=== PATIENT | female | born 1955 | race Two or more races ===

== ENCOUNTER 2017-03-06 11:45 | Observation (INO) | payer OTHER ==
[2017-03-06] MEDS ORDERED: ONDANSETRON 4 MG/2 ML VIAL IVP ONE (15:00)
[2017-03-06] MEDS ORDERED: NS 1,000 ML IV ONE (15:02)
[2017-03-06] MEDS ORDERED: MECLIZINE HCL 25 MG TAB PO ONE ×2 (15:03→20:01)
[2017-03-06 15:06] LABS: % IMMATURE GRANULYOCYTES 0.2 % (0.0-1.1); ABSOLUTE IMMATURE GRANULOCYTES 0.02 10^3/uL (0.00-0.10); ADD DIFF? NO; ADD MORPH? NO; ADD SCAN? NO; ATYPICAL LYMPHOCYTE FLAG 10 (0-99); FRAGMENT RBC FLAG 0 (0-99); HEMATOCRIT 42.4 % (38.0-47.0); HEMOGLOBIN 14.1 g/dL (12.6-16.3); LEFT SHIFT FLG 0 (0-99); LIPEMIA HEMOLYSIS FLAG 80 (0-99); MEAN CELL HEMOGLOBIN 29.7 pg (27.9-34.1); MEAN CELL HEMOGLOBIN CONCENTR. 33.3 g/dL (32.4-36.7); MEAN CELL VOLUME 89.3 fL (81.5-99.8); MEAN PLATELET VOLUME 9.7 fL (8.7-11.7); PLATELET CLUMPS FLAG 0 (0-99); PLATELET COUNT 319 10^3/uL (150-400); RED BLOOD CELL COUNT 4.75 10^6/uL (4.18-5.33); RED CELL DISTRIBUTION WIDTH 12.9 % (11.5-15.2)
--- NOTE | 2017-03-06 15:06 | EDPHY ---
H & P Time Seen by Provider: 03/06/17 13:53 HPI/ROS: CHIEF COMPLAINT: Dizzy HISTORY OF PRESENT ILLNESS: The patient is a 61-year-old female who presents to the emergency department with dizziness starting at 5:45 a.m. last evening. Patient states she initially developed nausea and vomiting. After vomiting she felt dizzy. It came on suddenly. It is worse with head movement. She feels as though the room is spinning. She denies tenderness or hearing loss. No focal weakness. She has had mild right arm numbness. No incoordination no visual change. No neck pain. No fall. The patient has no chest pain or shortness of breath. She took meclizine without much relief. She took Zofran with improvement in her nausea. REVIEW OF SYSTEMS: My complete review of systems is negative except as mentioned in the HPI. Past Medical/Surgical History: Includes thyroid disease, melanoma, vertigo, meningioma Past surgical history: Appendectomy, , prolapsed bladder Social history: Patient does not smoke. She denies alcohol use. No drug use. Smoking Status: Never smoked Physical Exam: Vitals noted GENERAL: Mild acute distress, alert. HEENT: Eyes normal to inspection, normal pharynx, no signs of dehydration. Horizontal nystagmus. NECK: No thyromegaly, no lymphadenopathy, supple. RESPIRATORY: Clear to auscultation bilaterally, no rales, rhonchi or wheezing. CVS: Regular rate and rhythm, no rubs, murmurs, or gallops. ABDOMEN: Soft, nontender, nondistended, no organomegaly. BACK: Normal to inspection, no CVA tenderness. SKIN: Normal color, no rash, warm, dry. No pallor. EXTREMITIES: No pedal edema, no calf tenderness, no Homans sign or cords, no joint swelling. NEURO/PSYCH: Higher functions: Alert and Oriented x3. Normal speech and cognition. Normal mood and affect. Cranial nerves: Normal as tested. Cerebellar: Normal as tested. Good finger to nose, good [id number], normal gait. Peripheral exam: Normal motor exam. Normal sensation. Normal reflexes. Constitutional: Initial Vital Signs Temperature (C) 36.4 C 03/06/17 11:51 Heart Rate 72 03/06/17 11:51 Respiratory Rate 18 03/06/17 11:51 Blood Pressure 143/63 H 03/06/17 11:51 O2 Sat (%) 97 03/06/17 11:51 O2 Delivery Mode Room Air Allergies/Adverse Reactions: oseltamivir phosphate [From Tamiflu] Allergy (Intermediate, Verified 03/06/17 11 :50) nitrofurantoin Allergy (Verified 03/06/17 11:50) STERIODS Allergy (Unknown, Uncoded 11/16/15 19:53) Home Medications: Medication Instructions Recorded Liothyronine Sodium [Cytomel 25 11/16/15 mcg (RX)] Meclizine HCl [Meclizine HCl 25 mg 25 mg PO Q6 PRN #20 tab 02/01/16 (RX,OTC)] Ondansetron Odt [Zofran Odt] 4 mg PO Q4PRN #6 tab 02/01/16 Medical Decision Making - Diagnostics Imaging Results: Imaging Impressions Brain MRI 03/06/17 15:18 Impression: 1. 1.7 x 1.5 x 1.5 cm homogeneously enhancing mass within the caudal aspect of the interhemispheric fissure anteriorly, with imaging features compatible with the given history of meningioma. Comparison with previous studies is recommended to determine whether the lesion has increased in size. 2. No features of acute cortical ischemia or intracranial hemorrhage. Results called to Dr. Kajal Newman at 4:25 PM. ED Course/Re-evaluation: In the emergency department I discussed possible etiologies with the patient. I answered all her questions. Patient had laboratory studies ordered. She is given normal saline 1 L IV for hydration. She is given meclizine 25 mg orally, Benadryl 25 mg IV and Zofran 4 mg IV for nausea and dizziness. Because of her dizziness an MRI was ordered. On recheck the patient was doing well. Her chemistry panel was unremarkable. CBC was normal. EKG shows sinus rhythm, at 57, normal axis, normal intervals. There are no ST or T-wave abnormalities. On recheck the patient stated she was feeling a bit better. Her vertigo was still present but improved. She had no focal neurologic deficits on exam. She still had mild horizontal nystagmus. She is given Ativan 1 mg IV. MRI: Please refer the dictated report by Dr. Mejia. No acute CVA or bleed. Discussed the results with the patient. I answered all her questions. On recheck she had no focal deficits. She stated her vertigo was while lying in bed. I attempted to ambulate the patient to the bathroom. She was unable to ambulate or be steady on her feet. Because of fall risk she will be admitted to the hospitalist. I discussed this with Dr. Rodriguez. Differential Diagnosis: My differential includes but is not limited to ischemic CVA, hemorrhagic CVA, subarachnoid hemorrhage, subdural hematoma, epidural hematoma, electrolyte abnormality, sugar abnormality, dehydration, peripheral vertigo, Meniere's disease - Data Points Laboratory Results: Laboratory Results 03/06/17 14:02 03/06/17 14:02 03/06/17 03/06/17 03/06/17 14:02 14:02 14:02 WBC 8.72 10^3/uL 10^3/uL (3.80-9.50) RBC 4.75 10^6/uL 10^6/uL (4.18-5.33) Hgb 14.1 g/dL g/dL (12.6-16.3) Hct 42.4 % % (38.0-47.0) MCV 89.3 fL fL (81.5-99.8) MCH 29.7 pg pg (27.9-34.1) MCHC 33.3 g/dL g/dL (32.4-36.7) RDW 12.9 % % (11.5-15.2) Plt Count 319 10^3/uL 10^3/uL (150-400) MPV 9.7 fL fL (8.7-11.7) Neut % (Auto) 66.4 % % (39.3-74.2) Lymph % (Auto) 26.8 % % (15.0-45.0) Hunt % (Auto) 5.4 % % (4.5-13.0) Eos % (Auto) 0.7 % % (0.6-7.6) Baso % (Auto) 0.5 % % (0.3-1.7) Nucleat RBC Rel Count 0.0 % % (0.0-0.2) Absolute Neuts (auto) 5.79 10^3/uL 10^3/uL (1.70-6.50) Absolute Lymphs (auto) 2.34 10^3/uL 10^3/uL (1.00-3.00) Absolute Monos (auto) 0.47 10^3/uL 10^3/uL (0.30-0.80) Absolute Eos (auto) 0.06 10^3/uL 10^3/uL (0.03-0.40) Absolute Basos (auto) 0.04 10^3/uL 10^3/uL (0.02-0.10) Absolute Nucleated RBC 0.00 10^3/uL 10^3/uL (0-0.01) Immature Gran % 0.2 % % (0.0-1.1) Immature Gran # 0.02 10^3/uL 10^3/uL (0.00-0.10) PT 12.9 SEC SEC (12.0-15.0) INR 0.98 (0.83-1.16) APTT 25.3 SEC SEC (23.0-38.0) Sodium 142 mEq/L mEq/L (134-144) Potassium 3.9 mEq/L mEq/L (3.5-5.2) Chloride 105 mEq/L mEq/L (97-110) Carbon Dioxide 22 mEq/l mEq/l (22-31) Anion Gap 15 mEq/L mEq/L (8-16) BUN 18 mg/dL mg/dL (7-23) Creatinine 0.8 mg/dL mg/dL (0.6-1.0) Estimated GFR > 60 Glucose 96 mg/dL mg/dL (70-100) Calcium 10.0 mg/dL mg/dL (8.5-10.4) Troponin I < 0.012 ng/mL ng/mL (0.000-0.034) Medications Given: Discontinued Medications Diphenhydramine HCl (Benadryl Injection) 25 mg IVP EDNOW ONE Stop: 03/06/17 15:03 Last Admin: 03/06/17 15:10 Dose: 25 mg Sodium Chloride (Ns) 1,000 mls @ 0 mls/hr IV ONCE ONE PRN Reason: Wide Open Stop: 03/06/17 15:03 Last Admin: 03/06/17 15:57 Dose: 1,000 mls Lorazepam (Ativan Injection) 1 mg IVP EDNOW ONE Stop: 03/06/17 16:13 Last Admin: 03/06/17 16:47 Dose: 1 mg Meclizine HCl (Meclizine Hcl) 25 mg PO EDNOW ONE Stop: 03/06/17 15:04 Last Admin: 03/06/17 15:10 Dose: 25 mg Ondansetron HCl (Zofran) 4 mg IVP EDNOW ONE Stop: 03/06/17 15:01 Last Admin: 03/06/17 15:10 Dose: 4 mg Departure - Departure Disposition: [facility] Inpatient Acute Clinical Impression: Dizziness Condition: Good Referrals: ROSA MACRELINO [Primary Care Provider] - As per Instructions
[2017-03-06] MEDS ORDERED: GADOBUTROL 10 ML VIAL IVP ONE (15:15)
[2017-03-06 15:29] LABS: APTT 25.3 SEC (23.0-38.0); INR 0.98 (0.83-1.16); PROTIME(PATIENT) 12.9 SEC (12.0-15.0)
[2017-03-06 15:36] LABS: ANION GAP 15 mEq/L (8-16); CARBON DIOXIDE 22 mEq/l (22-31); CHLORIDE 105 mEq/L (97-110); CREATININE 0.8 mg/dL (0.6-1.0); GLOMERULAR FILTRATION RATE > 60; GLUCOSE 96 mg/dL (70-100); POTASSIUM 3.9 mEq/L (3.5-5.2); SODIUM 142 mEq/L (134-144)
[2017-03-06 15:46] LABS: TROPONIN I < 0.012 ng/mL (0.000-0.034)
--- NOTE | 2017-03-06 15:59 | CPEKG ---
Heart Rate: 57 RR Interval: 1053 P-R Interval: 168 QRSD Interval: 88 QT Interval: 452 QTC Interval: 440 P [place]: 53 QRS [place]: 35 T Wave [place]: 45 EKG Severity - NORMAL ECG - EKG Impression: SINUS RHYTHM Electronically Signed By: Kajal Newman 06-Mar-2017 20:26:28
[2017-03-06] MEDS ORDERED: LORazepam 2 MG/ML INJ IVP ONE (16:12)
[2017-03-06] MEDS ORDERED: METOCLOPRAMIDE 10 MG/2 ML VIAL IVP PRN (17:55)
[2017-03-06] MEDS ORDERED: oxyCODONE IR 5 MG TAB PO PRN (17:55)
[2017-03-06] MEDS ORDERED: ONDANSETRON 4 MG/2 ML VIAL IVP PRN (17:55)
[2017-03-06] MEDS ORDERED: ONDANSETRON DISINTEGRATING 4 MG TAB PO PRN (17:55)
[2017-03-06] MEDS ORDERED: LORazepam 2 MG/ML INJ IVP PRN (17:55)
[2017-03-06] MEDS ORDERED: ACETAMINOPHEN 325 MG TAB PO PRN (17:55)
[2017-03-06] MEDS ORDERED: PROMETHAZINE HCL 25 MG/ML INJ IVP PRN (17:55)
[2017-03-06] MEDS ORDERED: NS 1,000 ML IV SCH (18:00)
--- NOTE | 2017-03-06 18:41 | GHP ---
[f rep st] HISTORY AND PHYSICAL DATE OF ADMISSION: 03/06/2017 CHIEF COMPLAINT: Dizziness. HISTORY OF PRESENT ILLNESS: This is a 61-year-old female with a history of vertigo, as well as menin gioma, who presents with dizziness. She had an episode of vomiting and diarrhea yesterday afternoon at 5:45. She thinks that she ate something bad, as nobody else has been sick around her. She felt v rashawn poorly and took a Zofran. She was at work when this happened, and she had to leave work. After she got home, she was extremely dizzy. She describes it as the room spinning when she changes her vi [place] from one side to the other. She has had vertigo before and this feels like vertigo. She has no focal numbness or weakness in her arms or legs, no confusion. Her other GI symptoms have improved s ignificantly, and she is now slightly hungry. She has not had any nausea or vomiting or diarrhea sin ce yesterday. PAST MEDICAL/SURGICAL HISTORY: 1. 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 Garcia at the [place]. 2. Hypothyroid. 3. Vertigo. 4. Melanoma, followed by Dermatology. Melanoma was resected. 5. Appendectomy. 6. . 7. Prolapsed bladder. MEDICATIONS: Please see medication reconciliation. ALLERGIES: Include Tamiflu, Macrobid, steroids. FAMILY HISTORY: No meningioma. SOCIAL HISTORY: She does not drink or smoke. She is accompanied by her friend, whom she says is kymberly ost a sister. REVIEW OF SYSTEMS: A 10-point review of systems is conducted and is negative except per HPI. PHYSICAL EXAMINATION: VITAL SIGNS: Blood pressure 140/70, heart rate 52, respiration rate 18, satti ng 96% on room air. Temperature is 36.4. GENERAL: The patient is a pleasant female who appears surjit ewhat uncomfortable, lying in bed with the lights dimmed in the room. HEENT: Normocephalic, atraumat ic. CARDIOVASCULAR: A regular rate and rhythm. No murmurs, rubs, or gallops. PULMONARY: Lungs cl ear to auscultation bilaterally. ABDOMINAL: Soft, nontender, and nondistended. SKIN: No rash. : No Weathers. NEUROLOGIC: Alert and oriented x3. She has horizontal as well as vertical nystagmus i n both directions. She, otherwise, has a normal, nonfocal neurologic exam. PSYCHIATRIC: A normal m ood and affect. LABORATORY DATA: CBC is normal. INR is normal. Basic metabolic panel is normal. Creatinine is 0.8 . DATA: 1. I discussed this with Dr. Newman, will admit to med/surg. 2. I viewed her brain MRI. This shows a mass which is compatible with her history of meningioma. T here were no acute strokes. 3. EKG, which I personally viewed and interpreted, shows sinus rhythm. This is a normal EKG. IMPRESSION AND PLAN: 61-year-old female with vertigo. 1. Vertigo: We will provide supportive care, including IV fluids, scheduled meclizine, and other an tiemetics as needed. Will ask PT to see her tomorrow, if she is not feeling any better, and consider the Jazmin maneuvers. 2. History of meningioma: Her MRI is consistent with her reported history. She should follow up [facility] Dr. Garcia. /[id number]/MODL
[2017-03-06] MEDS ORDERED: TEARS/DEXTRAN 70/HYPROMELLOSE 15 ML OPHT.BTL EACHEYE PRN (20:15)
[2017-03-07 03:10] VITALS: TEMP 98.1
[2017-03-07] MEDS ORDERED: LEVOTHYROXINE 125 MCG TAB PO SCH (06:00)
[2017-03-07 08:10] VITALS: BP 133/67; PULSE 63; RESP 17; O2SAT 95
[2017-03-07] MEDS ORDERED: MECLIZINE HCL 25 MG TAB PO PRN (09:00)
[2017-03-07] MEDS ORDERED: LIOTHYRONINE SODIUM 5 MCG TAB PO SCH (09:00)
--- NOTE | 2017-03-07 09:58 | PDDCSUM ---
Discharge Summary Discharge Summary: Dates of service 03/06-03/07/17 Discharge dx: # vertigo # meningioma # hx of melanoma and hypothyroid consultations: none procedures performed: Brain MRI Hospital course by problem: # vertigo: sounds most c/w either BPV or viral labrynthitis, brain MRI showing known meningioma but no abnormalities likely to cause her presenting sxs, she has had a sense of fullness in her left ear but no signs of ear infection on exam. d/c'ed with meclizine and zofran and given an rx for short course of prednisone in case sxs are lingering. She will f/u with her PCP on Friday # meningioma: noted on MRI without apparent complication Dc home > 35 minutes spent in dc more than half in face to face counseling of patient regarding f/u plans and dx
== END 2017-03-07 10:45 | disposition home or self-care (01) ==
LOC: F1N 18:25
PROVIDERS: ADMIT Student in an Organized Health Care Education/Training Program; ATTEND Internal Medicine
DX: R42 Dizziness and giddiness (principal); C70.0 Malignant neoplasm of cerebral meninges; Z85.820 Personal history of malignant melanoma of skin
CPT/HCPCS: 70553; 93005; G0378; 96374; A9585; J1200; J2060; J2405

== ENCOUNTER → 2017-06-19 | Outpatient (CLI) | payer OTHER | LOC: CIMAGING 14:57 | PROVIDERS: ATTEND Family Medicine | DX: Z12.31 Encounter for screening mammogram for malignant neoplasm of breast (principal) | CPT/HCPCS: G0202 ==

== ENCOUNTER → 2018-06-26 | Outpatient (CLI) | payer OTHER | LOC: CIMAGING 08:37 | PROVIDERS: ATTEND Family Medicine | DX: Z12.31 Encounter for screening mammogram for malignant neoplasm of breast (principal) ==